=== PATIENT | female | born 1940 | race Caucasian/White ===

== ENCOUNTER 2017-12-18 22:50 | Emergency (ER) | payer OTHER ==
[~2017-12-18] VITALS: Ht 152.4 cm; Wt 60.7 kg
[2017-12-18 22:50] VITALS: TEMP 36.8; Ht 152.4 cm; Wt 60.7 kg
[~2017-12-18 22:50] MED LIST: ACET-1311 PO; ACET-1693 PO; ASPI81TA28 PO; ATOR-22 PO; BISA10SU7 RE; CARV12.52 PO; CHOL100010 PO; CLOP1TAB15 PO; CLTP PO; CYAN1LOZ PO; CYM/60 PO; DILT240C57 PO; DOCU-94 PO; FSM70 PO; GLC500 PO; HYDR-5688 PO; INSDGI SQ; LINIOIN3 TOP; LISI-461 PO; MAGNSUS5 PO; NYSCR30 EXT; POLY335025 PO; RANI1TAB75 PO; RNXER500 PO; SENN-91 PO; SODIENE PR; TRAZ50TA35 PO
[2017-12-18 23:28] LABS: BASO % 0.2 %; BASO ABS # 0.01 K/uL (0-0.2); EOS % 1.7 %; HEMATOCRIT 27.7 % (37-47); HEMOGLOBIN 8.9 g/dL (12.0-16.0); IG# 0.01 K/uL (0.00-0.02); LYMPH % 27.2 %; LYMPH ABS # 1.62 K/uL (1.2-3.4); MEAN CORPUSCULAR HEMOGLOBIN 27.6 pg (25-34); MEAN CORPUSCULAR HGB CONC 32.1 g/dl (32-36); MEAN PLATELET VOLUME 8.4 fL (7.4-10.4); MONO % 9.2 %; MONO ABS # 0.55 K/uL (0.11-0.59); NEUT % 61.5 %; NEUT ABS # 3.66 K/uL (1.4-6.5); PLATELET COUNT 211 K/uL (130-400); RED CELL DISTRIBUTION WIDTH CV 28.6 % (11.5-14.5); RED CELL DISTRIBUTION WIDTH SD 89.1 fL (36.4-46.3); WHITE BLOOD COUNT 5.95 K/uL (4.8-10.8)
[2017-12-18 23:38] LABS: INR 1.1 (0.9-1.1); PTT PATIENT 27.2 SECONDS (21.0-31.0)
[2017-12-18 23:44] LABS: CALCIUM 9.1 mg/dl (8.5-10.1); CREATININE 0.83 mg/dl (0.60-1.20); POTASSIUM 4.8 mmol/L (3.5-5.1)
[2017-12-18] MEDS ORDERED: ONDA4TAB46 PO (23:44)
[2017-12-18] MEDS ORDERED: ACET-1256 PO (23:44)
[2017-12-18] MEDS ORDERED: OXYC-643 PO (23:44)
[2017-12-18] MEDS ORDERED: METF1000 PO (23:44)
[2017-12-18] MEDS ORDERED: FERR1TAB13 PO (23:44)
[2017-12-18] MEDS ORDERED: CHOLTAB9 PO (23:44)
[2017-12-18] MEDS ORDERED: SENN-83 PO (23:44)
[2017-12-18] MEDS ORDERED: CALCTAB7 PO (23:44)
[2017-12-18] MEDS ORDERED: MOMLX PO (23:44)
[2017-12-18] MEDS ORDERED: FSM70 PO (23:44)
[2017-12-18] MEDS ORDERED: ACET-1346 PO (23:44)
--- NOTE | 2017-12-19 01:27 | EMERGENCY ROOM VISIT NOTE ---
History Report prepared by Keyonna: Boogie Castorena Under the Supervision of: Dr. Mike Zavala M.D. First contact with patient: 22:58 Chief Complaint: FALL Stated Complaint: FALL, R HIP PAIN History of Present Illness The patient is a 77 year old female who presents to the Emergency Room with complaints of a sudden fall occurring around 2000 tonight. The patient states that she fell, though she did not lose consciousness. She is currently complaining of right hip pain. Per the nursing staff, the patient fell from standing height in the bathroom, and she did not hit her head. The patient is currently on Plavix. The patient denies any abdominal pain, chest pain, shortness of breath, back pain, or arm pain. Source of History: patient, nursing staff Onset: 1999 Position: other (global) Quality: other (fall) Timing: other (sudden) Associated Symptoms: No LOC, No chest pain, No SOB, No abdominal pain, No back pain Note: Associated symptoms: Right hip pain. Review of Systems See HPI for pertinent positives & negatives. A total of 10 systems reviewed and were otherwise negative. 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 Family History Diabetes mellitus FHx: heart disease Hypertension Social History Smoking Status: Never Smoker Alcohol Use: none Marital Status: Current/Historical Medications Scheduled Acetaminophen (Tylenol), 500 MG PO HS Alendronate Sodium (Alendronate Sodium), 70 MG PO WK Aspirin (Aspirin Ec), 81 MG PO QAM Atorvastatin (Lipitor), 20 MG PO HS Calcium Carbonate-Vitamin D W/ (Caltrate 600 Plus), 1 TAB PO QAM Carvedilol (Coreg), 12.5 MG PO AMHS Cholecalciferol (D3-1000), 1,000 UNITS PO QAM Clopidogrel (Plavix), 75 MG PO QAM Cyanocobalamin (Vitamin B 12), 100 MG PO QAM Diltiazem Hcl Coated Beads (Cardizem Cd), 240 MG PO QAM Duloxetine HCl (Cymbalta), 60 MG PO QAM Ferrous Sulfate (Kp Ferrous Sulfate), 325 MG PO BID17 Insulin Glargine (Lantus), 14 UNITS SQ HS Lisinopril (Zestril), 10 MG PO QAM Metformin Hcl (Glucophage), 1,000 MG PO BIDM Oxycodone/Acetaminophen 5MG/325MG (Oxycodone/Acetaminophen 5MG/325MG), 1 TABLET PO BID AT 0800 & 1600 Polyethylene Glycol 3350 (Miralax), 17 GM PO AMHS Ranitidine HCl (Ranitidine 75), 75 MG PO HS Ranolazine (Ranexa), 500 MG PO AMHS Sennosides-Docusate Sodium (Senexon-S), 2 TABS PO AMHS Scheduled PRN Acetaminophen (Acetaminophen), 650 MG PO Q4H PRN for Pain or Fever Bisacodyl (Bisac-Evac), 1 SUPP RE DAILY PRN for Constipation Magnesium Hydroxide (Milk of Magnesia), 30 ML PO DAILY PRN for Constipation Menthol-Methyl Salicylate (Lanny (Icy Hot Felda Extra Streng), 1 APPL TOP TID PRN for Pain Ondansetron Hcl (Zofran), 4 MG PO Q6H PRN for Nausea Sodium Phosphate/Biphosphate (Fleet Enema), 1 EA MS DAILY PRN for Constipation Allergies Coded Allergies: No Known Allergies (Unverified , 12/18/17) Physical Exam Vital Signs Date Time Temp Pulse Resp B/P (MAP) Pulse Ox O2 Delivery O2 Flow Rate FiO2 12/19/17 00:50 76 19 114/57 96 Room Air 12/19/17 00:03 80 12/18/17 22:50 36.8 74 16 116/55 98 Room Air Physical Exam Constitutional: Vital signs reviewed. Eyes: Pupils are equal round reactive to light. Conjunctiva are noninjected. ENT: Pharynx is clear without erythema or exudate. Mucous membranes are moist. Neck supple without meningeal signs. No midline tenderness to the cervical spine. Respiratory: Clear to auscultation bilaterally. Breath sounds are equal bilaterally. Cardiovascular: Regular rate and rhythm. No rubs or gallops. GI: Ventral hernia that is not tender. Soft, nondistended and nontender. Bowel sounds are present. Rectal: Guaiac negative brown stool. Musculoskeletal: No midline tenderness to the thoracic or lumbar spine. Tenderness to the right proximal femur below the hip with small area of ecchymosis. No shortening. Normal distal pulses. Integumentary: No cyanosis. Neurological: The patient is awake and alert. No focal deficits. GCS 15 Psychiatric: Normal affect. Medical Decision & Procedures ER Provider Diagnostic Interpretation: Radiology results as stated below per my review and the radiologist's interpretation: CT HEAD: No acute hemorrhage, hydrocephalus, or mass effect. Areas of chronic microvascular ischemic changes and lacunar infarcts. Old infarct in the right TELEVISION PARTS TESTER distribution. Radiologist: Rhonda Kathleen MD X-ray results as stated below per interpretation by me: Hip and Pelvis X-ray: No acute fracture or dislocation. Right Femur X-ray: No fracture or dislocation. Chest X-ray. Calcified aortic know. Post surgical vertebral changes. No lung consolidation. Laboratory Results 12/18/17 23:13 Red Blood Count 3.22, Mean Corpuscular Volume 86.0, Mean Corpuscular Hemoglobin 27.6, Mean Corpuscular Hemoglobin Concent 32.1, Mean Platelet Volume 8.4, Neutrophils (%) (Auto) 61.5, Lymphocytes (%) (Auto) 27.2, Monocytes (%) (Auto) 9.2, Eosinophils (%) (Auto) 1.7, Basophils (%) (Auto) 0.2, Neutrophils # (Auto) 3.66, Lymphocytes # (Auto) 1.62, Monocytes # (Auto) 0.55, Eosinophils # (Auto) 0.10, Basophils # (Auto) 0.01 12/18/17 23:13 Test 12/18/17 23:13 White Blood Count 5.95 K/uL (4.8-10.8) Red Blood Count 3.22 M/uL (4.2-5.4) Hemoglobin 8.9 g/dL (12.0-16.0) Hematocrit 27.7 % (37-47) Mean Corpuscular Volume 86.0 fL (80-100) Mean Corpuscular Hemoglobin 27.6 pg (25-34) Mean Corpuscular Hemoglobin Concent 32.1 g/dl (32-36) Platelet Count 211 K/uL (130-400) Mean Platelet Volume 8.4 fL (7.4-10.4) Neutrophils (%) (Auto) 61.5 % Lymphocytes (%) (Auto) 27.2 % Monocytes (%) (Auto) 9.2 % Eosinophils (%) (Auto) 1.7 % Basophils (%) (Auto) 0.2 % Neutrophils # (Auto) 3.66 K/uL (1.4-6.5) Lymphocytes # (Auto) 1.62 K/uL (1.2-3.4) Monocytes # (Auto) 0.55 K/uL (0.11-0.59) Eosinophils # (Auto) 0.10 K/uL (0-0.5) Basophils # (Auto) 0.01 K/uL (0-0.2) RDW Standard Deviation 89.1 fL (36.4-46.3) RDW Coefficient of Variation 28.6 % (11.5-14.5) Immature Granulocyte % (Auto) 0.2 % Immature Granulocyte # (Auto) 0.01 K/uL (0.00-0.02) Poikilocytosis PRESENT Anisocytosis PRESENT Prothrombin Time 11.1 SECONDS (9.0-12.0) Prothromb Time International Ratio 1.1 (0.9-1.1) Activated Partial Thromboplast Time 27.2 SECONDS (21.0-31.0) Partial Thromboplastin Ratio 1.0 Anion Gap 6.0 mmol/L (3-11) Est Creatinine Clear Calc Drug Dose 44.8 ml/min Estimated GFR () 77.7 Estimated GFR (Non- 67.1 BUN/Creatinine Ratio 47.4 (10-20) Calcium Level 9.1 mg/dl (8.5-10.1) Laboratory results as reviewed by me. ECG Per My Interpretation Indication: other (Possible hip fracture) Rate (beats per minute): 76 Rhythm: normal sinus Findings: left axis deviation, no ectopy, other (No ST elevation. R Kouts of - 34.) ED Course 2258: The patient was evaluated in room B9. A complete history and physical exam was performed. 0029: I reevaluated the patient, and I discussed the test results with her. She was able to ambulate without assistance. She denied light headedness, rectal bleeding, and melanotic stools. 0113: I discussed the test results with the patient. She will be discharged home. Medical Decision This is a 77-year-old female who presents with injuries after fall. Differential diagnosis includes hip fracture, contusion, femur fracture, hip dislocation, pelvic fracture. I did perform a limited focused review of portions of the patient's old chart on the electronic medical record. The patient has had no recent pertinent visits to this hospital. I did evaluate the patient as noted above. IV access was established. The patient was placed on a continuous nuclear monitoring technician. I did order and personally review the patient's 12-lead EKG and x-rays as described above. There is no evidence of fracture or dislocation. I did order and review the patient's blood work as noted in the electronic medical record. She is anemic. I did perform a rectal examination which showed no blood. Stool was brown and guaiac negative. The patient is on Plavix. She states she did not hit her head but she also does not remember exactly how she fell. I therefore did order a CT of the head. I did review the images myself as well as the radiology report as described above. There is no evidence of intracranial hemorrhage. I did discuss the test results with the patient. She was able to ambulate without any assistance. She has no complaints. She was discharged back to her residence. Head Trauma GCS Score: 15 Medication Reconcilliation Current Medication List: was personally reviewed by me Blood Pressure Screening Patient's blood pressure: Normal blood pressure Impression Primary Impression: Fall Additional Impressions: Injury of right hip Anemia Scribe Attestation The scribe's documentation has been prepared under my direct and personally reviewed by me in its entirety. I confirm that the note above accurately reflects all work, treatment, procedures, and medical decision making performed by me. Departure Information Dispostion Home / Self-Care Referrals Luis Alfredo Ramsay M.D. (PCP) Forms HOME CARE DOCUMENTATION FORM, IMPORTANT VISIT INFORMATION Patient Instructions ED Anemia Type Not Specified, My [facility] Additional Instructions You have been examined and treated today on an emergency basis only. This is not a substitute for, or an effort to provide, complete comprehensive medical care. It is impossible to recognize and treat all injuries or illnesses in a single emergency department visit. It is therefore important that you follow up closely with your physician. Call as soon as possible for an appointment. Return for worsening symptoms or if you develop fever, vomiting, weakness, chest pain, shortness of breath, headache or any other concerning symptoms. Should you have persistent hip pain talked to her doctor about obtaining further imaging including possible CT or MRI. Problem Qualifiers Primary Impression: Fall Encounter type: initial encounter Qualified Codes: W19.XXXA - Unspecified fall, initial encounter Additional Impressions: Injury of right hip Encounter type: initial encounter Qualified Codes: S79.911A - Unspecified injury of right hip, initial encounter Anemia Anemia type: unspecified type Qualified Codes: D64.9 - Anemia, unspecified
[2017-12-19 02:30] VITALS: BP 127/57; PULSE 72; O2SAT 96
--- NOTE | 2017-12-19 06:43 | DIAGNOSTIC IMAGING REPORT ---
ADDENDUM IMPRESSION #1 should read as follows: 1. Moderate sized knee joint effusion WITHOUT acute fracture or dislocation identified. Electronically signed by: Willie Bernardo M.D. 12/19/2017 11:03 AM Dictated Date/Time: 12/19/2017 11:03 AM ORIGINAL REPORT R FEMUR 2 VIEWS ROUTINE, R PELVIS/UNILATERAL HIP 2-3VIEWS HISTORY: 77 years-old Female eval for fx acute pelvis and right leg pain status post fall COMPARISON: CT abdomen and pelvis 04/25/2016 TECHNIQUE: AP view of the pelvis with 2 views of the right hip and 2 views of the right femur FINDINGS: PELVIS AND RIGHT HIP: The bones appear moderately demineralized. Fusion hardware of the lumbar spine is partially imaged in addition to lumbar levoscoliosis. Moderate degenerative changes are seen within the bilateral femoral acetabular joints. Ill-defined lucency projecting over the right inferior pubic ramus is thought to be secondary to rectal stool contents. No acute fracture or dislocation is identified. Peripheral vascular disease. RIGHT FEMUR: No acute fracture or dislocation identified. Tricompartmental osteoarthritis is noted about the knee which appears at least moderate. Moderate sized joint effusion is noted. Peripheral vascular disease. IMPRESSION: 1. Moderate sized knee joint effusion acute fracture or dislocation identified. 2. Degenerative changes as above. 3. Osteopenic appearance of the bones. 4. Peripheral vascular disease. The above report was generated using voice recognition software. It may contain grammatical, syntax or spelling errors. Electronically signed by: Willie Bernardo M.D. 12/19/2017 6:41 AM Dictated Date/Time: 12/19/2017 6:37 AM
--- NOTE | 2017-12-19 06:48 | DIAGNOSTIC IMAGING REPORT ---
HEAD WITHOUT CONTRAST (CT) CLINICAL HISTORY: 77 years-old Female presenting with eval for bleed, fall, on blood thinners. TECHNIQUE: Multidetector CT imaging of the head was performed without the use of intravenous contrast. IV contrast: None. A dose lowering technique was used consistent with the principles of ALARA (as low as reasonably achievable). COMPARISON: None. CT DOSE (mGy.cm): The estimated cumulative dose is 614.27 mGy.cm. 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 Proportional ventricular and sulcal prominence, likely age-related parenchymal volume loss. Periventricular and subcortical white matter hypoattenuation, nonspecific but likely indicative of chronic small vessel ischemic change. Hypodensity in the right occipital lobe consistent with encephalomalacia and gliosis. Old lacunar infarct in the left basal ganglia. No mass effect or midline shift. No hemorrhage or acute territorial infarct. No extra-axial fluid collection. Trace fluid in the left mastoid air cells may be present. Old brayden holes noted in the right occipital region. Bilateral venetie ira lenses are absent. IMPRESSION: 1. No acute intracranial abnormality. 2. 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 Electronically signed by: Walter Lawrence M.D. 12/19/2017 6:47 AM Dictated Date/Time: 12/19/2017 6:43 AM
--- NOTE | 2017-12-19 07:03 | DIAGNOSTIC IMAGING REPORT ---
CHEST ONE VIEW PORTABLE CLINICAL HISTORY: Fall. Possible hip fracture. COMPARISON STUDY: Chest radiograph July 20, 2010. FINDINGS: There are median sternotomy wires and a thoracolumbar spine fusion hardware. No pneumothorax or pleural effusion is noted. Old right-sided rib fractures are present. There is moderate cardiomegaly. There is no evidence for pulmonary edema. Linear bibasilar opacities favor atelectasis. There is no consolidation. IMPRESSION: 1. No acute cardiopulmonary findings. 2. Moderate cardiomegaly without evidence of pulmonary edema. 3. Linear bibasilar opacities suggestive of atelectasis. Electronically signed by: Gilmer Ibrahim M.D. 12/19/2017 7:02 AM Dictated Date/Time: 12/19/2017 7:00 AM
== END 2017-12-19 02:30 | disposition home or self-care (01) ==
LOC: EDBD 22:50 → C.EDB 22:52
DX: S79.911A Unspecified injury of right hip, initial encounter (principal); W19.XXXA Unspecified fall, initial encounter; Y92.012 Bathroom of single-family (private) house as the place of occurrence of the external cause; D64.9 Anemia, unspecified; E11.9 Type 2 diabetes mellitus without complications; I11.9 Hypertensive heart disease without heart failure; Z79.02 Long term (current) use of antithrombotics/antiplatelets; Z79.82 Long term (current) use of aspirin; Z79.899 Other long term (current) drug therapy; Z83.3 Family history of diabetes mellitus; Z82.49 Family history of ischemic heart disease and other diseases of the circulatory system